=== PATIENT | male | born 1985 | race Caucasian/White ===

== ENCOUNTER 2017-02-13 10:10 | Emergency (ER) | payer OTHER ==
[2017-02-13 11:58] VITALS: BP 151/89
== END 2017-02-13 11:58 | disposition home or self-care (01) ==
LOC: ED 10:10
DX: S81.811A Laceration without foreign body, right lower leg, initial encounter (principal); W54.0XXA Bitten by dog, initial encounter; Y93.89 Activity, other specified; Y92.89 Other specified places as the place of occurrence of the external cause; Y99.8 Other external cause status
CPT/HCPCS: 90715; J2001